=== PATIENT | female | born 1985 | race Two or more races ===

== ENCOUNTER 2022-06-21 22:51 | Emergency (ER) | payer SELFPAY ==
--- NOTE | 2022-06-21 22:56 | NUR ---
Patient went up to resgistration window and stated "I don't want to be seen anymore" and left ER.
--- NOTE | 2022-06-21 22:57 | NUR ---
PATENT WAS NOT SEEN BY ERMD OR TRIAGED.
== END 2022-06-21 23:07 | disposition left against medical advice (07) ==
LOC: ER 22:59
DX: Z53.21 Procedure and treatment not carried out due to patient leaving prior to being seen by health care provider (principal)